=== PATIENT | male | born 1995 | race Caucasian/White ===

== ENCOUNTER 2017-12-31 15:01 | Emergency (ER) | payer OTHER ==
[2017-12-31 15:05] VITALS: BP 126/68; TEMP 96.4; BMI 25.8
[2017-12-31] MEDS ORDERED: PHENERGAN 25 MG/ML VIAL IM STA (15:07)
[2017-12-31] MEDS ORDERED: TENIVAC IM ONE (15:18)
[2017-12-31] MEDS: MORPHINE 4 MG/ML SYRINGE IM STA ×2 (15:26→15:39)
--- NOTE | 2017-12-31 15:26 | DI ---
EXAM: Left third finger; PA, lateral, and oblique views HISTORY: Table saw injury of finger tip FINDINGS: A soft tissue defect is noted at the ulnar aspect of the distal third finger. No radiopaqu e foreign bodies are associated. The joint spaces are maintained. No fracture or subluxation are det ected. The bone density is normal. OPINION: Laceration, ulnar side of the distal third finger without associated fracture or subluxation. No rad iopaque foreign bodies.
[2017-12-31] MEDS ORDERED: POLYSPORIN 0.9 GM PACKET TP STA (15:36)
--- NOTE | 2017-12-31 15:38 | ED.PDOC ---
General ED Provider: Dr. OSBALDO JOHN-ER Chief Complaint: Finger Laceration Stated Complaint: i cut my finger on a saw Time Seen by Physician: 15:05 Mode of Arrival: Walk-In Information Source: Patient Exam Limitations: No limitations Nursing and Triage Documentation Reviewed and Agree: Yes Does patient meet sepsis criteria?: No System Inflammatory Response Syndrome: Not Applicable Sepsis Protocol: For patient's 13 years and over: Temp is 96.8 and below OR 101 and greater Pulse >90 BPM Resp >20/minute Acutely Altered Mental Status Are patient's symptoms suggestive of a new infection, such as: -Pneumonia -Skin, Soft Tissue -Endocarditis -UTI -Bone, Joint Infection -Implantable Device -Acute Abdominal Infection -Wound Infection -Meningitis -Blood Stream Catheter Infection -Unknown Skin Complaint Exam - Laceration/Abrasion/Hand Complaint/Exam Location of Injury: Left, Digit #3 Mechanism of Injury: Laceration (avulsion) Onset/Duration: one hour Symptoms Are: Still present Initial Severity: Mild Current Severity: Mild Aggravating: Movement Alleviating: Compression Associated Signs and Symptoms: Denies: Fever, Chills, Erythema, Numbness, Tingling Related History: Reports: Right hand dominant Differential Diagnoses: Avulsion, Laceration Review of Systems - Review Of Systems Constitutional: Reports: No symptoms Eyes: Reports: No symptoms Ears, Nose, Mouth, Throat: Reports: No symptoms Respiratory: Reports: No symptoms Cardiac: Reports: No symptoms GI: Reports: No symptoms : Reports: No symptoms Musculoskeletal: Reports: No symptoms Skin: Reports: No symptoms, Other Neurological: Reports: No symptoms Endocrine: Reports: No symptoms Hematologic/Lymphatic: Reports: No symptoms All Other Systems: Reviewed and Negative Past Medical History - Past Medical History Previously Healthy: Yes Endocrine: Reports: Unknown Cardiovascular: Reports: Unknown Respiratory: Reports: Unknown Hematological: Reports: Unknown Gastrointestinal: Reports: Unknown Genitourinary: Reports: Unknown Neuro/Psych: Reports: Unknown Musculoskeletal: Reports: Unknown Cancer: Reports: Unknown - Surgical History General Surgical History: Reports: Unknown - Family History Family History: Reports: Unknown - Social History Smoking Status: Never smoker Hx Substance Use: No Alcohol Screening: None - Immunizations Tetanus Shot up to Date: No Physical Exam - Physical Exam Appearance: Well-appearing, No pain distress, Well-nourished Pain Distress: Moderate Eyes: KYRA, EOMI, Conjunctiva clear ENT: Ears normal, Nose normal, Oropharynx normal Neck: Supple Respiratory: Airway patent, Breath sounds clear, Breath sounds equal, Respirations nonlabored Cardiovascular: RRR, Pulses normal, No rub, No murmur GI/: Soft, Nontender, No masses, Bowel sounds normal, No Organomegaly Musculoskeletal: Normal strength, ROM intact, No edema, No calf tenderness Skin: Warm, Dry, Normal color Neurological: Sensation intact, Motor intact, Reflexes intact, Cranial nerves intact, Alert, Oriented Psychiatric: Affect appropriate, Mood appropriate Interpretation - Radiology Interpretation Radiology Interpretation By: Radiologist Radiology Results: Negative Critical Care Note - Critical Care Note Total Time (mins): 0 Course - Course Orders, Labs, Meds: Orders Category Date Time Status Wound care [ED WOUND CARE] .ONCE EMERGENCY 12/31/17 15:35 Active Bacitracin/Polymyxin B Sulfate [Polysporin 0.9 gm MEDS 12/31/17 15:36 Stat Packet] 1 each TP ONCE STA Morphine Sulfate [Morphine 4 mg/ml Syringe] MEDS 12/31/17 15:07 Discontinued 4 mg IM ONCE STA Promethazine HCl [Phenergan 25 mg/ml Vial] MEDS 12/31/17 15:07 Discontinued 25 mg IM ONCE STA Tetanus and Diphtheria Tox/Pf [Tenivac] MEDS 12/31/17 15:18 Discontinued 0.5 ml IM .ONCE ONE FINGER(S), LEFT MIN 2V Stat RADS 12/31/17 15:07 Completed Medications Generic Name Dose Route Start Last Admin Trade Name Freq PRN Reason Stop Dose Admin Bacitracin/Polymyxin B Sulfate 1 each 12/31/17 15:36 Polysporin 0.9 Gm Packet TP 12/31/17 15:37 ONCE STA Discontinued Medications Generic Name Dose Route Start Last Admin Trade Name Freq PRN Reason Stop Dose Admin Morphine Sulfate 4 mg 12/31/17 15:07 12/31/17 15:26 Morphine 4 Mg/Ml Syringe IM 12/31/17 15:08 4 mg ONCE STA Administration Promethazine HCl 25 mg 12/31/17 15:07 12/31/17 15:25 Phenergan 25 Mg/Ml Vial IM 12/31/17 15:08 25 mg ONCE STA Administration Tetanus/Diphtheria Toxoids Adsorbed 0.5 ml 12/31/17 15:18 12/31/17 15:27 Tenivac IM 12/31/17 15:19 0.5 ml .ONCE ONE Administration Vital Signs: Temp Pulse Resp BP Pulse Ox 12/31/17 15:01 96.4 F L 91 H 18 126/68 96 Departure - Departure Time of Disposition: 15:39 Disposition: HOME SELF-CARE Discharge Problem: Laceration of finger Instructions: Skin Avulsion (ED) Condition: Good Pt referred to PMD for follow-up: Yes IPMP verified?: No Additional Instructions: change dressing daily and apply triple antbx ointment after washing with soap and water---norco 7.5mg q 4hrs prn pain #10----return if any signs of infection Allergies/Adverse Reactions: Allergies No Known Allergies Allergy (Unverified 12/31/17 15:04) Home Medications: Ambulatory Orders 1 [No Reported Medications] 12/31/17 Disposition Discussed With: Patient
== END 2017-12-31 15:56 | disposition home or self-care (01) ==
LOC: ED 15:01 → EDBD 15:01 → ED 15:56
DX: S61.213A Laceration without foreign body of left middle finger without damage to nail, initial encounter (principal); W45.8XXA Other foreign body or object entering through skin, initial encounter; W27.8XXA Contact with other nonpowered hand tool, initial encounter
CPT/HCPCS: 90471; 90714; 96372; 99283